=== PATIENT | male | born 1945 | race Caucasian/White ===

== ENCOUNTER 2022-08-04 10:00 | Outpatient (RCR) | payer MEDICARE, OTHER, SELFPAY ==
[2022-08-04] VITALS (11 sets, daily range): BP systolic 96–144; BP diastolic 54–69; PULSE 50–56; RESP 16–18; TEMP 36.7–37.1; O2SAT 96–100
--- NOTE | 2022-08-04 12:40 | ONC.NURNOTE ---
CHERIE questioned rationale for two vs. one unit of blood. Dr. Thapa contacted our office to say that this was a request from oncology to give two units because he is to be treated next week again with chemotherapy for his bladder cancer. CHERIE made aware.
[2022-08-04] MEDS: FUROSEMIDE 10 MG/ML inj 20 MG IV (13:26)
--- NOTE | 2022-08-05 09:30 | ONC.NURNOTE ---
Late entry. 08/04/22 1545. Pt here for 2 units of blood, 1st unit of blood started at 1104. Pt received Lasix in between units and tolerated infusion well. Pt given discharge instructions on signs symptoms to watch for r/t blood transfusion reactions. Pt and his spouse verbalized understanding of discharge instructions.
== END 2023-01-30 23:59 | disposition home or self-care (01) ==
LOC: CCIC 10:00
PROVIDERS: PCP Family Medicine; Referring Provider Family Medicine; Visit Provider Clinical Nurse Specialist
DX: D64.89 Other specified anemias (principal)
CPT/HCPCS: 36415; 36430; 86850; 86900; 86901; 86922; J1940; P9016

== ENCOUNTER 2022-10-27 17:38 | Emergency (ER) | payer MEDICARE, OTHER, SELFPAY ==
[2022-10-27] VITALS (23 sets, daily range): BP systolic 108–121; BP diastolic 62–66; PULSE 106–113; RESP 18; TEMP 38.2–38.8; O2SAT 90–96; BMI 23.0
--- NOTE | 2022-10-27 18:54 | CRLHL7_ITS ---
For Patients: As a result of the Century Cures Act, medical imaging exams and procedure reports are released immediately into your electronic medical record. You may view this report before your referring provider. If you have questions, please contact your health care provider. INDICATION: Abdominal pain, fever, vomiting, constipation. TECHNIQUE: CT abdomen and pelvis acquired with 85 cc Visipaque 320 IV contrast. COMPARISON: None. FINDINGS: Lower chest: Scattered atelectasis. Peripheral reticulations, possibly interstitial lung disease. Liver: Nodular hepatic contour. Tiny hypodensity in segment 7/8. Gallbladder and bile ducts: Unremarkable. No stones or inflammation. No biliary dilatation. Pancreas: Unremarkable. No mass or inflammation. Spleen: Unremarkable. Normal in size. No masses. Adrenal glands: Unremarkable. No nodules. Kidneys: Moderate left-sided hydroureteronephrosis to the level of anastomosis with delayed nephrogram. Some urothelial wall enhancement. Tiny hypodensities in both kidneys. GI tract: Moderate colonic stool burden, most pronounced in the rectum. Normal in caliber. No sign of mass or inflammation. Normal appendix. Vasculature: Moderate aortoiliac arterial calcifications. Abdominal aorta is normal in caliber. Mesenteric arteries are patent. Lymph nodes: No lymphadenopathy. Peritoneum/Abdominal Wall: Small volume ascites. No free intraperitoneal air. Pelvis: Postsurgical changes of cystectomy with right lower quadrant ileal conduit/ostomy.. Bones: Unremarkable for age. IMPRESSION: Postsurgical changes of cystectomy with right lower quadrant ileal conduit. Moderate left-sided hydroureteronephrosis to the level of the anastomosis, with some urothelial enhancement. Constellation of findings could be related to possible postoperative edema (in the acute setting) or stricture (in the chronic setting). Recommend correlation with surgical history. Superimposed infection not excluded. Small volume free intraperitoneal fluid, most pronounced in the pelvis. Some peritoneal enhancement which could suggest peritonitis, although sterility cannot be assessed by imaging. Moderate colonic stool burden, most pronounced in the rectum. Hepatic cirrhosis. Please note that all CT scans at this facility use dose modulation, iterative reconstruction, and/or weight-based dosing when appropriate to reduce radiation dose to as low as reasonably achievable. Dictated by Alfonso Gardner MD @ 10/27/2022 8:45:55 PM (Electronically Signed)
[2022-10-27 19:16] LABS: Appearance Urine Cloudy (Clear); Bilirubin Urine Negative (Negative); Blood Urine 1+ (Negative); Color Urine Yellow (Yellow); Glucose Urine Negative (Negative); Ketones Urine Negative (Negative); Leukocyte Esterase Urine 3+ (Negative); Nitrite Urine Positive (Negative); Protein Urine 2+ (Negative); Specific Gravity Urine 1.015 (1.000-1.030); Urobilinogen Urine 0.2 (0.2-1.0); pH Urine 7.5 (5.0-8.5)
[2022-10-27 19:26] LABS: Lactate* 0.9 mmol/L (0.5-1.9)
[2022-10-27 19:27] LABS: Basophils Percent Auto 0.1 % (0.0-3.0); Hematocrit 30.3 % (37.0-53.0); Hemoglobin* 10.1 gm/dL (13.5-17.5); Immature Granulocytes Pct Auto 0.2 %; Mean Corpuscular HGB Conc 33 gm/dL (32-36); Mean Corpuscular Hemoglobin 32 pg (26-34); Mean Corpuscular Volume 95 fL (80-100); Monocytes Percent Auto 6.4 % (0.0-11.0); Neutrophils Percent Auto 90.3 % (42.0-72.0); Platelet Count* 137 K/uL (140-440); RDW Coefficient of Variation % 13.7 % (11.5-15.5); Red Blood Count 3.19 m/uL (4.30-5.90); White Blood Count* 12.05 K/uL (4.50-11.00)
[2022-10-27 19:29] LABS: Bacteria Urine Moderate
[2022-10-27 19:30] LABS: Slide Review Reflex No
[2022-10-27] MEDS: 0.9 % SODIUM CHLORIDE 500 ML 500 ML IV (19:30)
[2022-10-27 19:38] LABS: Troponin, Point-of-Care* 0.01 ng/ml (0.01-0.04)
[2022-10-27 19:43] LABS: Albumin* 3.3 g/dL (3.3-5.0); Chloride* 99 mmol/L (96-114)
[2022-10-27 19:44] LABS: Potassium* 3.7 mmol/L (3.6-5.1); Sodium* 131 mmol/L (135-149)
[2022-10-27 19:46] LABS: Creatinine* 1.8 mg/dL (0.5-1.5); Estimated Glomerular Filt Rate 38 ml/min
[2022-10-27 19:47] LABS: Alanine Aminotransferase* 18 U/L (4-50); Alkaline Phosphatase* 76 U/L (40-150); Aspartate Amino Transferase* 21 U/L (12-35); Bilirubin Direct* 0.4 mg/dL (0.0-0.5); Bilirubin Total* 0.7 mg/dL (0.1-1.5); Blood Urea Nitrogen* 34 mg/dL (7-30); Calcium* 8.6 mg/dL (8.4-10.6); Carbon Dioxide* 26 mmol/L (20-32); Glucose* 178 mg/dL (60-115); Lipase* 34 U/L (23-300); Total Protein* 6.6 g/dL (6.0-8.3)
[2022-10-27] MEDS: MORPHINE 4 MG/ML INJ IVP (19:50)
[2022-10-27 20:11] LABS: C Reactive Protein* 22.2 mg/dL (0.5-1.0)
--- NOTE | 2022-10-27 20:16 | ED.GENADULT ---
HPI - General Adult General Chief complaint: Abdominal Pain Stated complaint: Abdominal Pain Vomiting Constipated Time Seen by Provider: 10/27/22 18:17 Source: patient and family Mode of arrival: ambulatory Limitations: other (Mild confusion, memory loss) History of Present Illness HPI narrative: Patient is a 77-year-old male here with his daughter for evaluation of some abdominal pain and now vomiting. He had a cystectomy at the end of August at [facility] secondary to bladder cancer. He was hospitalized for 13 days thereafter and daughter says that he has been home since then and really had been doing pretty well until the past week. Since then, he has developed difficulty with constipation, has not had a good bowel movement over that period of time, did have a small bowel movement a couple of days ago and daughter reports that while in the lobby he had urgency to have a bowel movement and then had some watery stool. The abdominal pain has been getting worse and then today he had a couple of episodes of vomiting. Abdominal pain is diffuse. Here he has a temperature of 100.8? but they are not aware of any fevers at home. He denies any chest pain, difficulty breathing, cough. His daughter feels that he has been a little more confused than usual, I do note that he answers questions but sometimes seems to drift off or forget what we were talking about. Related Data Allergies Allergy/AdvReac Type Severity Reaction Status Date / Time sulfamethoxazole Allergy Unknown Verified 10/27/22 17:46 [From Bactrim] trimethoprim [From Bactrim] Allergy Unknown Verified 10/27/22 17:46 Review of Systems Status of ROS: Reports: 10 or more systems reviewed and unremarkable except as noted in History and below [facility] Social History Smoking Status: Unknown if ever smoked Exam Narrative: Exam Narrative: Vital signs as noted above. In general, an alert, nontoxic elderly male. Head: Normocephalic, atraumatic. Eyes: Pupils are equal reactive. Extraocular movements are full. Conjunctivae are normal. ENT: Mucous membranes are moist. Neck: Supple without lymphadenopathy. Heart: Tachycardic and regular. No obvious murmur. Lungs: Clear bilaterally. No increased work of breathing, crackles or wheezes. Abdomen: Nondistended. Diffuse mild tenderness without rebound guarding or rigidity. Cystostomy noted in the right lower abdomen, site looks clean without any erythema, urine is light yellow and clear. Extremities: Well perfused. No edema. No calf tenderness. Pulses intact. Neurologic: Patient is alert and oriented to person and place though memory is not entirely reliable. Speech is fluent. Face is symmetric. Moves all extremities equally. Affect: Normal. Skin: Warm and dry. Well perfused. Const: Vital Signs, click to edit/add: Vital Signs - 24 hr 10/27/22 17:42 10/27/22 20:08 10/27/22 20:15 Temperature 100.8 F H Pulse Rate 112 H 113 H Respiratory Rate 18 Blood Pressure Blood Pressure [Ri ght Upper Arm] 114/66 Pulse Oximetry 96 90 91 Oxygen Delivery Me thod Room Air 10/27/22 20:30 10/27/22 20:32 10/27/22 20:45 Temperature Pulse Rate 109 H 113 H 108 H Respiratory Rate Blood Pressure 121/65 Blood Pressure [Ri ght Upper Arm] Pulse Oximetry 94 93 91 Oxygen Delivery Me thod 10/27/22 21:00 10/27/22 21:01 10/27/22 21:15 Temperature Pulse Rate 108 H 107 H 109 H Respiratory Rate Blood Pressure 113/62 Blood Pressure [Ri ght Upper Arm] Pulse Oximetry 93 94 94 Oxygen Delivery Me thod 10/27/22 21:30 10/27/22 21:32 10/27/22 21:45 Temperature Pulse Rate 107 H 108 H 108 H Respiratory Rate Blood Pressure 108/63 Blood Pressure [Ri ght Upper Arm] Pulse Oximetry 92 93 94 Oxygen Delivery Me thod 10/27/22 22:00 10/27/22 22:01 Temperature Pulse Rate 111 H 109 H Respiratory Rate Blood Pressure 112/66 Blood Pressure [Ri ght Upper Arm] Pulse Oximetry 92 93 Oxygen Delivery Me thod Documenting provider has reviewed patient's vital signs: yes Course Course Hospital Course: Following initial evaluation patient had an IV established, he was given 500 mL normal saline. Ultimately was given 4 mg of morphine for pain as his point of care troponin was 2. Based on a creatinine clearance of 34, I did elect to give contrast with his abdominal CT. Other labs were notable for white blood cell count of 12 with a left shift of 90% neutrophils. Hemoglobin was 10, baseline unknown. Platelets [id number]. Basic metabolic panel showed a sodium of 131, other electrolytes were normal. BUN 34, creatinine 1.8, baseline unknown. Blood sugar was 178. LFTs unremarkable. CRP was elevated at 22. Lipase was normal. Urinalysis notable for 1+ blood, positive nitrites, 5-10 red cells and 10-25 white blood cells. Troponin was 0.01. He he went on to have a CT scan of the abdomen. By my review the showed free fluid in the abdomen, left-sided hydronephrosis, and significant stool particularly in the rectum. I did not see evidence of bowel obstruction or significant inflammatory changes. Final radiology report is as follows:IMPRESSION: Postsurgical changes of cystectomy with right lower quadrant ileal conduit. Moderate left-sided hydroureteronephrosis to the level of the anastomosis, with some urothelial enhancement. Constellation of findings could be related to possible postoperative edema (in the acute setting) or stricture (in the chronic setting). Recommend correlation with surgical history. Superimposed infection not excluded. Small volume free intraperitoneal fluid, most pronounced in the pelvis. Some peritoneal enhancement which could suggest peritonitis, although sterility cannot be assessed by imaging. Moderate colonic stool burden, most pronounced in the rectum. Hepatic cirrhosis. Diagnostic considerations included constipation, bowel obstruction, UTI, pyelonephritis, sepsis, among others. At this time, he does not have peritoneal signs on exam. Certainly his abdominal pain could be related to constipation but based on his CT scan I do not think that we can default to that. I am at this time waiting to talk with urology. They have been paged at 8:50 p.m.. I spoke with initially Dr. galaviz on-call . His concern was for obstructive uropathy on the left with infected urine and he felt the patient should be transferred up to [facility] for stent placement. However, [facility] did not have any beds and therefore he recommended that we transfer to [facility] instead. I did talk with Dr. Daugherty at [facility] so he is aware. Hospitalist has accepted the patient in transfer. Blood cultures and urine cultures are pending. He has been given a g of Rocephin. He is comfortable at this time, hemodynamically stable. Awaiting bed placement at [facility]. Vital Signs Vital signs: Initial Vital Signs Temperature 100.8 F H 10/27/22 17:42 Temperature Source Temporal Artery Scan 10/27/22 17:42 Respiratory Rate 18 10/27/22 17:42 Blood Pressure 114/66 10/27/22 17:42 Blood Pressure Mean 82 10/27/22 17:42 Blood Pressure Position Sitting 10/27/22 17:42 Pulse Oximetry 96 10/27/22 17:42 Oxygen Delivery Method Room Air 10/27/22 17:42 Vital Signs Temperature 100.8 F H 10/27/22 17:42 Respiratory Rate 18 10/27/22 17:42 Blood Pressure 114/66 10/27/22 17:42 Pulse Oximetry 96 10/27/22 17:42 Oxygen Delivery Method Room Air 10/27/22 17:42 Temperature 100.8 F H 10/27/22 17:42 Pulse Rate 109 H 10/27/22 22:01 Respiratory Rate 18 10/27/22 17:42 Blood Pressure 112/66 10/27/22 22:01 Pulse Oximetry 93 10/27/22 22:01 Oxygen Delivery Method Room Air 10/27/22 17:42 Medical Decision Making Lab Data Labs: Lab Results 10/27/22 10/27/22 10/27/22 Range/Units 19:02 19:15 19:34 WBC 12.05 H (4.50-11.00) K/uL RBC 3.19 L (4.30-5.90) m/uL Hgb 10.1 L (13.5-17.5) gm/dL Hct 30.3 L (37.0-53.0) % MCV 95 (80-100) fL MCH 32 (26-34) pg MCHC 33 (32-36) gm/dL RDW Coeff of Madi 13.7 (11.5-15.5) % Plt Count 137 L (140-440) K/uL Neut % (Auto) 90.3 H (42.0-72.0) % Lymph % (Auto) 3.0 L (20-44) % Wilbarger % (Auto) 6.4 (0.0-11.0) % Eos % (Auto) 0.0 (0.0-7.0) % Baso % (Auto) 0.1 (0.0-3.0) % Neut # (Auto) 10.90 H (1.7-7.0) K/uL Lymph # (Auto) 0.40 L (0.90-2.90) K/uL Wilbarger # (Auto) 0.80 (0.00-0.90) K/UL Eos # (Auto) 0.00 (0.00-0.50) K/uL Baso # (Auto) 0.00 (0.00-0.30) K/uL Sodium 131 L (135-149) mmol/L Potassium 3.7 (3.6-5.1) mmol/L Chloride 99 (96-114) mmol/L Carbon Dioxide 26 (20-32) mmol/L BUN 34 H (7-30) mg/dL Creatinine 1.8 H (0.5-1.5) mg/dL Estimated Creat Clear 35.80 Estimated GFR 38 ml/min Glucose 178 H (60-115) mg/dL Lactate 0.9 (0.5-1.9) mmol/L Calcium 8.6 (8.4-10.6) mg/dL Total Bilirubin 0.7 (0.1-1.5) mg/dL Direct Bilirubin 0.4 (0.0-0.5) mg/dL AST 21 (12-35) U/L ALT 18 (4-50) U/L Alkaline Phosphatase 76 (40-150) U/L C-Reactive Protein 22.2 H (0.5-1.0) mg/dL Total Protein 6.6 (6.0-8.3) g/dL Albumin 3.3 (3.3-5.0) g/dL Lipase 34 (23-300) U/L Urine Color Yellow (Yellow) Urine Appearance Cloudy A (Clear) Urine pH 7.5 (5.0-8.5) Ur Specific Ericson 1.015 (1.000-1.030) Urine Protein 2+ A (Negative) Urine Glucose (UA) Negative (Negative) Urine Ketones Negative (Negative) Urine Blood 1+ A (Negative) Urine Nitrite Positive A (Negative) Urine Bilirubin Negative (Negative) Urine Urobilinogen 0.2 (0.2-1.0) Ur Leukocyte Esterase 3+ A (Negative) Urine RBC 5-10 A (0-2) Urine WBC 10-25 A (0-5) Ur Squamous Epith Cells None (None-Few) Urine Bacteria Moderate A (None) POC Creatinine 2.0 H (0.6-1.3) mg/dl POC Troponin I 0.01 (0.01-0.04) ng/ml Discharge Plan Discharge Follow Up/Referrals: Derek Thapa MD [Primary Care Provider] -
[2022-10-27] MEDS: cefTRIAXone 1 GM in 0.9 % SODIUM CHLORIDE Mini-bag 100 ML IVPB (21:46)
[2022-10-27] MEDS: ACETAMINOPHEN 500 MG TABLET 1000 MG PO (23:30)
--- NOTE | 2022-10-27 23:30 | ED.NURSE ---
Report called to Daisy Shukla.
== END 2022-10-27 23:58 | disposition short-term general hospital (02) ==
PROVIDERS: Emergency Provider Emergency Medicine; PCP Family Medicine
DX: K56.41 Fecal impaction (principal); Z98.890 Other specified postprocedural states
CPT/HCPCS: 36415; 74177; 80048; 80076; 81001; 82565; 83605; 83690; 84484; 85025; 86140; 87040; 87086; 87186; 96365; 96375; 99285; A9270; J0696; J2270; J7120; Q9967

== ENCOUNTER 2022-10-27 23:47 | Outpatient (CLI) | payer MEDICARE, OTHER, SELFPAY | END 2022-10-27 23:48 | disposition home or self-care (01) | LOC: AMB 10-29 12:28 | PROVIDERS: PCP Family Medicine; Visit Provider Family Medicine | DX: R10.9 Unspecified abdominal pain (principal) | CPT/HCPCS: A0425; A0428 ==